=== PATIENT | male | born 1950 | race Caucasian/White ===

== ENCOUNTER 2024-10-15 07:35 | Emergency (ER) | payer MEDICARE, OTHER, SELFPAY ==
[2024-10-15 07:38] VITALS: BP 174/81
--- NOTE | 2024-10-15 07:43 | ED.GENMED ---
History of Present Illness
General
Chief Complaint: Flank Pain
Source: patient
Exam Limitations: none
Time Seen by Provider: 10/15/24 07:42
Nursing documentation reviewed up to this point in time: agreed with
History of Present Illness
History of Present Illness:
Patient is a 73-year-old male presents to the ER for evaluation of right flank pain for the past several days. He has had dry heaves. He reports pain is intermittent. He denies any fever or chills. He denies any urinary frequency urgency dysuria
hematuria or testicle pain. He reports he recently had an ultrasound(because he has a history of increased iron his blood to look at his liver) and he was told he does have a kidney stone.
Patient does report he seems to feel that it is worse with walking.
Past History
Past History
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
ED Past Surgical History: Other (Skin cancer removal)
Social History
Tobacco: Non-smoker
Alcohol: Occasional
Drug: None
Personal:
Living: with family
Family History
Family History: Other (Noncontributory)
Review of Systems
Review of Systems
Allergies reviewed?: Yes
All Other Systems: ROS reviewed and negative except as documented in HPI and ROS
Constitutional: Reports no symptoms; Denies fever, fatigue or chills
Respiratory: Reports no symptoms
Cardiac: Reports no symptoms
ABD/GI: Reports abdominal pain and nausea; Denies vomiting
: Reports flank pain; Denies dysuria, frequency or difficulty voiding
Musculoskeletal: Reports no symptoms
Skin: Reports no symptoms
Psychiatric: Reports no symptoms
Phy Exam
General Physical Exam
General Presentation: no apparent distress
General age: appears stated age
General Skin: warm and dry
General Habitus: normal
General Mental: alert
General Hydration: appears well hydrated
Gastrointestinal Exam
Gastrointestinal Exam: non tender and soft
Neurological Exam
Neurological Exam: alert and oriented x3
Musculoskeletal Exam
Musculoskeletal Exam: full ROM
Skin Exam
Skin Exam: normal color and warm/dry
Psychiatric Exam
Psychiatric Exam: normal mood/affect
Course
Orders/Labs/Results
Orders:
Orders
10/15/24 07:50
IV Insert/Care/Rem.- Treatment PRN
0.9% Sodium Chloride 1000 ml [Nss] 1,000 ml IV BOLUS
10/15/24 07:54
CT Abd/pel Without Iv Or Oral Urgent
Comment:
Reason For Exam: right flank pain
10/15/24 08:03
Complete Blood Count/With Diff Urgent
Comprehensive Metabolic Panel Urgent
Urinalysis Reflex To Culture Urgent
Date Specimen was Collected: 10/15/24
Time Specimen was Collected: 08:00
Urine Microscopic Reflex Cult Urgent
10/15/24 09:52
Morphine Sulfate 4 mg IV NOW STA
Abnormal Lab Results
10/15/24
08:03
MCH 32.0 H pg
(27.0-31.0)
Abs Immat Gran (auto) 0.1 H 10^3/uL
(0-0.05)
Absolute Lymphs (auto) 1.0 L 10^3/uL
(1.2-3.4)
Immature Gran % 0.6 H %
(0-0.5)
Neutrophils % 77.7 H %
(42.2-75.2)
Lymphocytes % 12.5 L %
(20.5-51.1)
BUN 24 H mg/dl
(9-20)
Creatinine 1.8 H mg/dL
(0.7-1.3)
Glucose 122 H mg/dl
(70-99)
Total Bilirubin 2.1 H mg/dl
(0.2-1.3)
Ur Occult Blood Reflex 2+ A
(Negative)
Urine RBC 16-20 A /HPF
(0-2)
10/15/24 08:03
10/15/24 08:03
Vital Signs
Initial and Last Documented VS:
Initial Vital Signs
Temp Pulse Resp BP Pulse Ox
98.1 F 64 16 174/81 98
10/15/24 07:38 10/15/24 07:38 10/15/24 07:38 10/15/24 07:38 10/15/24 07:38
Last Documented Vital Signs
Temp Pulse Resp BP Pulse Ox
98.1 F 65 19 176/79 99
10/15/24 07:38 10/15/24 11:00 10/15/24 11:00 10/15/24 09:00 10/15/24 11:00
MDM/Problems Addressed
Differential Diagnosis Includes:
not limited to: Renal colic less likely pyelonephritis/muscular pain
MDM/Problems Addressed:
Patient is a 73-year-old male who presented with right flank pain. He is on Eliquis for previous PE DVT history greater than 4 years ago. Patient has no gross hematuria there is small microscopic blood. CAT scan does show 2.5 mm distal right
ureteral calculus with associated mild right hydroureteronephrosis. His BUN is minimally elevated 24 his creatinine is minimally elevated is 1.8 prior labs are from 2018 and normal. He does not recall having any recent abnormality in his blood
work which she gets routinely. He does admit that he has not been drinking a lot of water. Patient was hydrated here. Will give a dose of pain medication here. Case reviewed with Dr. Osuna he has no gross hematuria stable for discharge home
will DC on oxycodone he may take Tylenol if needed and if no improvement that oxycodone with outpatient follow-up with urology.
10:36: [facility] called they do not have oxycodone capsules will have to send a new prescription for tablets that they have.
*Radiology
Radiology exam reviewed: radiology read reviewed
*Pulse Oximetry
Patient hypoxic: no
*Critical Care Note
Total Time (30-74mins, 75-104mins- exclusive of procedures): Not Applicable
ED Attending Note
-
Portions of this chart may have been created with voice recognition software.� Occasional wrong word or��sound alike� substitutions may have occurred due to the inherent limitations of voice recognition software.
Discharge Plan
Departure
Patient Disposition: Home (Routine Discharge)
Date of Disposition: 10/15/24
Time of Disposition: 11:08
Patient with high blood pressure during this ER visit?: Yes
Condition: Fair
Covid-19: Not Applicable
Discharge Problem:
Kidney stone
Instructions: Kidney Stones (DC), BLOOD PRESSURE
Prescriptions:
New
tamsulosin [Flomax] 0.4 mg capsule
0.4 mg PO DAILY Qty: 7 0RF
oxycodone 5 mg tablet
5 mg PO Q6H PRN (Reason: Pain) Qty: 10 0RF
ondansetron 4 mg tablet,disintegrating
4 mg PO Q8H PRN (Reason: nausea and vomiting) Qty: 10 0RF
No Action
rivaroxaban [Xarelto] 10 MG tablet
20 mg PO DAILY Qty: 60 0RF
Rx Instructions:
15 mg twice a day for 3 weeks, followed by 20 mg daily thereafter
rivaroxaban [Xarelto] 15 MG tablet
15 mg PO BID 21 Days Qty: 42 0RF
Rx Instructions:
15 mg twice a day for 3 weeks, followed by 20 mg daily thereafter
Referrals:
Yash Fiore MD [Family Provider] -
Wyatt Osuna Jr., MD [Active] -
Activity Restrictions/Additional Instructions:
As discussed you do have a kidney stone (2.5 mm in the distal right ureter)
Continue to stay well-hydrated. You may take Tylenol for pain however if needed a prescription for Oxycodone which is a narcotic was sent to your pharmacy take as directed. This may cause constipation so be sure to take [id number] stool
softeners/laxatives while taking this medication. In addition you may take Zofran which is for nausea which was sent to your pharmacy.
Strain all urine
Follow-up with urology .please call the office today to make an appointment for next week. Return if any worsening of symptoms if obvious blood in your urine increased pain fever chills or any further concerns.
Interventions
Interventions:
*Risk Screen - Suicide Last Done: 10/15/24 07:38
*General Assessment Last Done: 10/15/24 07:38
*Neglect/Abuse Screening Last Done: 10/15/24 07:38
ED- Fall Risk Assessment Last Done: 10/15/24 07:59
*ED COVID-19 Vaccine History Last Done: 10/15/24 07:59
FF-Bjtazn-Dgdaixqprt Assessment Last Done: 10/15/24 07:59
ED-Male Genitourinary Assessment Last Done: 10/15/24 07:59
Discharge Date and Time
Print Language: UKRAINIAN
[2024-10-15 08:02] VITALS: BP 160/90
[2024-10-15] MEDS: NSS 1000 IV (08:07)
[2024-10-15 08:29] LABS: Urine Albumin Trace (Neg - Trace); Urine Bilirubin Negative (Negative); Urine Character Clear (Clear); Urine Color Yellow; Urine Glucose Negative (Negative); Urine Ketone Negative (Negative); Urine Leukocyte Negative (Negative); Urine Nitrite Negative (Negative); Urine Occult Blood 2+ (Negative); Urine Specific Gravity 1.025 (<1.030); Urine Urobilinogen Negative (Neg - 1+)
[2024-10-15 08:32] LABS: % Basophils 0.6 % (0-2); % Eosinophils 1.1 % (0-6); % Immature Granulocytes 0.6 % (0-0.5); % Lymphocytes 12.5 % (20.5-51.1); % Monocytes 7.5 % (1.7-9.3); % Neutrophils 77.7 % (42.2-75.2); Absolute Basophils 0.1 10^3/uL (0-0.2); Absolute Eosinophils 0.1 10^3/uL (0-0.7); Absolute Immature Granulocytes 0.1 10^3/uL (0-0.05); Absolute Monocytes 0.6 10^3/uL (0.1-0.6); Absolute Neutrophils 6.2 10^3/uL (1.4-6.5); Hemoglobin 17.4 g/dL (13.0-18.0); Mean Corp Hgb Conc. 34.1 g/dL (33.0-37.0); Mean Corpuscular Volume 93.8 fL (80.0-94.0); Mean Platelet Volume 8.4 fL (7.4-10.4); Nucleated Red Blood Cells % 0 % (-); Platelet Count 149 10^3/uL (130-400); Red Blood Cell Count 5.44 10^6/uL (4.70-6.10); Red Cell Dist. Width 11.9 % (11.5-14.5)
[2024-10-15 08:42] LABS: ALT (SGPT) 34 U/L (0-50); AST (SGOT) 33 U/L (17-59); Albumin 4.5 g/dl (3.5-5.0); Alkaline Phosphatase 99 U/L (38-126); Blood Urea Nitrogen 24 mg/dl (9-20); Calcium 9.5 mg/dl (8.4-10.2); Carbon Dioxide 26 mmol/L (22-30); Chloride 102 mmol/L (98-107); Glucose 122 mg/dl (70-99); Potassium 4.3 mmol/L (3.5-5.1); Sodium 138 mmol/L (135-145); Total Bilirubin 2.1 mg/dl (0.2-1.3); Total Protein 7.1 g/dl (6.3-8.2); eGFR 39.25
[2024-10-15 08:44] VITALS: BP 168/89
[2024-10-15 09:00] VITALS: BP 176/79
[2024-10-15 09:22] LABS: Urine Red Blood Cell 16-20 /HPF (0-2); Urine Squamous Cell 0-2 /LPF (Few); Urine White Cell 0-2 /HPF (0-5)
[2024-10-15] MEDS: MORPHINE SULFATE 4 MG IV (09:59)
[2024-10-15 11:12] VITALS: BP 163/87
== END 2024-10-15 11:36 | disposition home or self-care (01) ==
LOC: EMR 07:35
PROVIDERS: Nurse Practitioner; EMERGENCY PHYSICIAN Student in an Organized Health Care Education/Training Program; FAMILY PHYSICIAN Family Medicine
DX: N13.2 Hydronephrosis with renal and ureteral calculous obstruction (principal); Z86.718 Personal history of other venous thrombosis and embolism; Z86.711 Personal history of pulmonary embolism; Z85.828 Personal history of other malignant neoplasm of skin; Z79.01 Long term (current) use of anticoagulants
CPT/HCPCS: 96374; 96361; 99284; 74176; 80053; 81003; 81015; 85025